=== PATIENT | male | born 1950 ===

== ENCOUNTER 2024-08-25 15:50 | Outpatient (CLI) | payer MEDICARE | END 2024-08-25 23:59 | disposition home or self-care (01) | LOC: RAD 15:50 | PROVIDERS: ATTEND Nurse Practitioner Family | DX: R13.12 Dysphagia, oropharyngeal phase (principal); G35 Multiple sclerosis; Z79.899 Other long term (current) drug therapy | CPT/HCPCS: 74230 ==